=== PATIENT | male | born 1965 | race Two or more races ===

== ENCOUNTER 2017-01-26 16:06 | Emergency (ER) | payer MEDICAID, OTHER ==
[~2017-01-26] VITALS: Ht 177.8 cm; Wt 81.6 kg
[2017-01-26 16:17] VITALS: BP 112/70
[2017-01-26 17:21] LABS: CONDITION Y; DEFINITIVE SEE PRINTOUT; Hematocrit 25.9 % (41.0-53.0); Hemoglobin 8.9 g/dL (13.5-17.5); Mean Corpuscular Hemoglobin 31.1 pg (28.0-32.0); Mean Corpuscular Hgb Conc. 34.3 g/dL (32.0-36.0); Mean Corpuscular Volume 90.9 fL (80.0-100.0); Mean Platelet Volume 6.9 fL (6.9-10.8); Platelet Count (auto) 197 10^3/uL (140-450); Red Cell Distribution Width 19.6 % (11.8-14.3); White Blood Cell 2.8 10^3/uL (4.4-10.8)
[2017-01-26 17:38] LABS: Metamyelocytes % 0; Myelocytes % 0; Promyelocytes % 0; Reactive Lymphocytes 0
[2017-01-26 17:48] LABS: Albumin 2.1 g/dL (3.4-5.0); BUN/Creatinine Ratio 19.2; Bilirubin, Total 2.2 mg/dL (0.2-1.0); Calcium 7.5 mg/dL (8.5-10.1); Magnesium 2.2 mg/dL (1.6-2.6); Potassium 3.1 mmol/L (3.5-5.1); Total Protein 7.5 g/dL (6.4-8.2)
[2017-01-26 18:08] LABS: Burr Cells FEW
[2017-01-26 18:09] LABS: Anisocytosis Slight; Platelet Estimate Adequate
[2017-01-26 18:36] LABS: Temperature: 21.3 C (20.0-25.0)
[2017-01-27] MEDS ORDERED: POTASSIUM CHL 20 Meq TABLET PO ONE (05:45)
== END 2017-01-27 07:43 | disposition home or self-care (01) ==
LOC: EDBD 16:06 → ER 16:16
DX: L03.115 Cellulitis of right lower limb (principal); I50.9 Heart failure, unspecified; F17.210 Nicotine dependence, cigarettes, uncomplicated; Z88.6 Allergy status to analgesic agent; Z85.72 Personal history of non-Hodgkin lymphomas; Z88.8 Allergy status to other drugs, medicaments and biological substances
CPT/HCPCS: 36415; 71020; 73630; 80053; 83735; 83880; 84484; 85007; 85027; 86701; 86703; 93005